=== PATIENT | female | born 1955 | race Caucasian/White ===

== ENCOUNTER 2024-02-19 14:48 | Emergency (ER) | payer OTHER, MEDICAID ==
[~2024-02-19] VITALS: Ht 160 cm; Wt 91.0 kg
[~2024-02-19 14:48] MED LIST: GABA-529 PO; GLIP5TAB22 PO; METF-416 PO
[2024-02-19 15:06] VITALS: O2SAT 97
[2024-02-19] MEDS: ACETAMINOPHEN 325MG TABLET PO ONE (15:30)
[2024-02-19] MEDS ORDERED: TOPUD MT (16:03)
[2024-02-19] MEDS ORDERED: TRAM50TA3 MT (16:03)
[2024-02-19 16:16] VITALS: BP 128/74; PULSE 79; RESP 18; TEMP 98.5
== END 2024-02-19 17:12 | disposition home or self-care (01) ==
LOC: ER 14:48
DX: R07.89 Other chest pain (principal); I10 Essential (primary) hypertension; E78.00 Pure hypercholesterolemia, unspecified; E11.9 Type 2 diabetes mellitus without complications; Z98.890 Other specified postprocedural states; Z88.6 Allergy status to analgesic agent
CPT/HCPCS: 71045; 99283